=== PATIENT | female | born 1985 | race Two or more races ===

== ENCOUNTER 2019-10-23 08:29 | Inpatient (IN) | payer OTHER ==
[~2019-10-23] VITALS: Ht 160 cm; Wt 115.2 kg
[2019-10-23] MEDS ORDERED: ONDANSETRON HCL/PF 4 MG/2 ML VIAL IV PRN (15:30)
[2019-10-23] MEDS ORDERED: HYDROCODONE/APAP 5/325MG 1 EACH TABLET PO PRN (15:30)
--- NOTE | 2019-10-23 15:36 | NUR ---
MS/RN NOTES RECEIVED REPORT FROM OR NURSE P, PATIENT IS FOR DAY SURGERY OF LAPAROSCOPIC VERSES OPEN SLEEVE GASTRECTOMY POSSIBLE HIATAL HERNIA REPAIR. PATIENT DENIES PAIN AT THIS TIME. NO APPARENT DISTRESS NOTED. WILL CONTINUE TO MONITOR BEFORE SURGERY.
--- NOTE | 2019-10-23 17:39 | NUR ---
MS/RN NOTES PATIENT LEFT THE UNIT FOR SURGERY RN QUALITY BY OR NURSE AT 1722.
[2019-10-23] MEDS ORDERED: SEVOFLURANE 250 ML BOTTLE IH ONE (18:14)
[2019-10-23] MEDS ORDERED: FENTANYL PF 100MCG/2ML AMPUL ONE (18:14)
[2019-10-23] MEDS ORDERED: ANESTHESIA TRAY IN PYXIS 1 EA TRAY MC ONE (18:14)
[2019-10-23] MEDS ORDERED: HYDROMORPHONE INJ 2 MG/ML DISP.SYRIN ONE (18:14)
[2019-10-23] MEDS ORDERED: LIDOCAINE HCL/PF 1% 30 ML SDV ONE (18:15)
[2019-10-23] MEDS ORDERED: MIDAZOLAM HCL 2 MG/2ML VIAL ONE (18:15)
[2019-10-23] MEDS ORDERED: BUPIVACAINE MPF 0.5% W/EPI INJ 30 ML VIAL ONE (18:15)
[2019-10-23] MEDS ORDERED: HEPARIN SODIUM, PORCINE 5000 UNITS/1 ML VIAL ONE (19:17)
[2019-10-23] MEDS ORDERED: HEPARIN SODIUM, PORCINE 5000 UNITS/1 ML VIAL SQ SCH (21:00)
[2019-10-23] MEDS ORDERED: HYDROMORPHONE 1 MG/1 ML DISP.SYRIN ONE (21:57)
--- NOTE | 2019-10-23 22:30 | NUR ---
MS RN ADMITTING NOTES PATIENT ARRIVED ON UNIT VIA GURNEY; ACCOMPANIED BY OR STAFF; PATIENT A/O X4; SKIN INTACT AND PATENT; PATIENT VS STABLE; PATIENT TOLERATING 2L NC WELL; NO DISTRESS NOTED; NO SOB; NO S/S OF ACUTE RESPIRATORY DISTRESS NOTED; L AC #20 INTACT AND PATENT; FLUSHING WELL, NO S/S OF REDNESS OR INFILTRATION; SAFETY PRECAUTIONS IN PLACE; BILATERAL SIDE RAILS X2; BED LOCKED IN LOW POSITION; CALL LIGHT WITHIN REACH; WILL CONTINUE TO MONITOR
[2019-10-23 23:45] VITALS: BP 130/84
--- NOTE | 2019-10-24 00:17 | NUR ---
MS RN NOTES PATIENT REQUESTING PAIN MEDICATION; NO PAIN MEDICATION ORDERED; SPOKE WITH DR. TOBIN FOR MED ORDERS; ORDERS PLACED; WILL ADMINISTER DILAUDID PER MD ORDER; WILL CONTINUE TO MONITOR
[2019-10-24] MEDS: HYDROMORPHONE 1 MG/1 ML DISP.SYRIN IV PRN ×5 (00:19→13:01)
[2019-10-24] MEDS ORDERED: METOCLOPRAMIDE HCL 10 MG/2 ML VIAL IV SCH ×2 (00:30)
[2019-10-24] MEDS ORDERED: ACETAMINOPHEN 325 MG TABLET PO PRN (00:30)
[2019-10-24] MEDS ORDERED: ONDANSETRON HCL/PF 4 MG/2 ML VIAL IV PRN (00:30)
[2019-10-24] MEDS ORDERED: HYDROCODONE/APAP 5/325MG 1 EACH TABLET PO PRN (00:30)
[2019-10-24 04:53] VITALS: BP 130/84
[2019-10-24] MEDS: METOCLOPRAMIDE HCL 10 MG/2 ML VIAL IV SCH ×3 (05:02→17:17)
[2019-10-24 06:08] LABS: BASOPHILS % (AUTO) 0.1 % (0.0-2.0); HEMATOCRIT 38 % (33-45); HEMOGLOBIN 12.7 g/dL (11.5-14.8); LYMPHOCYTES # (AUTO) 0.9 /CMM (0.8-4.8); LYMPHOCYTES % (AUTO) 7.3 % (20.0-44.0); MEAN CORPUSCULAR HGB CONC 34 g/dl (31.0-36.0); MEAN CORPUSCULAR VOLUME 88 fL (82-100); MONOCYTES # (AUTO) 0.5 /CMM (0.1-1.30); NEUTROPHILS % (AUTO) 88.6 % (43.0-81.0); PLATELET COUNT (AUTO) 275 /CMM (150-450); RED BLOOD CELL COUNT(AUTO) 4.32 MIL/uL (4.0-5.2); WHITE BLOOD COUNT (AUTO) 12.4 K/uL (4.3-11.0)
--- NOTE | 2019-10-24 06:12 | NUR ---
MS RN CLOSING NOTES PATIENT RESTING IN BED COMFORTABLY; BREATHING EVEN AND UNLABORED; NO SOB; NO S/S OF RESPIRATORY DISTRESS NOTED; PATIENT TOLERATING ROOM AIR WELL; PATIENT UNDERSTANDS SHE IS ABLE TO USE 2L NC IF NEEDED; PATIENT AMBULATED TO BATHROOM WITH ASSISTANCE AND TOLERATED ACTIVITY WELL; L WRIST #20 SL INTACT AND PATENT; FLUSHING WELL; NO S/S OF REDNESS OR INFILTRATION NOTED; SAFETY PRECAUTIONS IN PLACE; BED LOCKED IN LOW POSITION; BILATERAL SIDE RAILS X2; CALL LIGHT WITHIN EASY REACH; WILL ENDORSE CONTINUITY OF CARE TO ONCOMING SHIFT
[2019-10-24 06:31] LABS: CALCIUM, SERUM 8.3 mg/dL (8.5-10.1); POTASSIUM 4.7 mmol/L (3.5-5.1)
--- NOTE | 2019-10-24 07:02 | NUR ---
ms rn received on bed, awake,alert,oriented x4s/p laparoscopic abd surgery w/ incision clean and dry, on pain pill, getting it at a regular basis, no distress noted, will monitor patient.
[2019-10-24] MEDS ORDERED: PANTOPRAZOLE 40 MG TABLET.DR PO SCH (07:30)
[2019-10-24 08:00] VITALS: BP 130/84
--- NOTE | 2019-10-24 08:50 | NUR ---
ms rn patient will have and upper gi series today, will wait for u/s tech for schedule.
[2019-10-24] MEDS ORDERED: PANTOPRAZOLE 40 MG/PACK PACK PO SCH (09:00)
[2019-10-24] MEDS ORDERED: DIATR MEGLU/DIATRIZOATE SODIUM 120 ML BOTTLE (GASTROGRAPHIN) ONE (12:18)
--- NOTE | 2019-10-24 14:00 | NUR ---
ms rn upper gi done , was seen by simeon, awaiting for result.
[2019-10-24 16:00] VITALS: BP 137/77
--- NOTE | 2019-10-24 16:23 | NUR ---
ms rn on bed, no distress noted.
--- NOTE | 2019-10-24 16:23 | NUR ---
ms rn relayed gi result to simeon, awaiting for orders.
[2019-10-24] MEDS ORDERED: METO-295 PO (18:12)
[2019-10-24] MEDS ORDERED: HYDR-4384 PO (18:12)
[2019-10-24] MEDS ORDERED: PANT40TA2 PO (18:12)
--- NOTE | 2019-10-24 19:59 | NUR ---
dc notes: pt for dc home, self care. pt a/o x3, all dc paper works signed by prt and prepared by day tania king. dc paper works handed over to pt by day nurse, electronic prescription by dr henry completed, pt mushroom picker by family and friends, abdl binder provided to pt. iv removed, armband removed and thrown to shredder. vs taken and recorded. pt left in stable condition, left via private care.
== END 2019-10-24 19:50 | disposition home or self-care (01) | DRG 983 ==
LOC: DS 08:29 → MED 22:42
PROVIDERS: ADMIT Nurse Practitioner Acute Care; ATTEND Nurse Practitioner Acute Care
PROC: 0DB64ZZ Excision of Stomach, Percutaneous Endoscopic Approach (ICD-10-PCS; principal; 2019-10-23)
PROC: 0BQT4ZZ Repair Diaphragm, Percutaneous Endoscopic Approach (ICD-10-PCS; principal; 2019-10-23)
PROC: 0FB04ZX Excision of Liver, Percutaneous Endoscopic Approach, Diagnostic (ICD-10-PCS; principal; 2019-10-23)
DX: E66.01 Morbid (severe) obesity due to excess calories (principal); K44.9 Diaphragmatic hernia without obstruction or gangrene; K66.0 Peritoneal adhesions (postprocedural) (postinfection); Z68.42 Body mass index [BMI] 45.0-49.9, adult
CPT/HCPCS: 36415; 74246-TC; 80048-TC; 84703-TC; 85025-TC; 87081-TC; 88307-TC; 88313-TC; 88342; 97116-TC; 97530-TC; 97535-TC; G0378; J1170; J1644; J2250; J2765; J3010; J3490; Q9963